=== PATIENT | male | born 1990 | race African-American/Black ===

== ENCOUNTER 2018-04-20 09:48 | Emergency (ER) | payer BC ==
[~2018-04-20] VITALS: Ht 172.7 cm; Wt 117.9 kg
[2018-04-20] MEDS ORDERED: CLEOCIN HCL150 MG PO (11:48)
[2018-04-20] MEDS ORDERED: NAPROSYN500 MG PO (11:48)
[2018-04-20] MEDS ORDERED: ULTRAM 50MG TAB50 MG PO (11:48)
[2018-04-20 12:02] VITALS: BP 147/72
== END 2018-04-20 12:02 | disposition home or self-care (01) ==
LOC: ER 09:48
DX: L03.116 Cellulitis of left lower limb (principal); F17.210 Nicotine dependence, cigarettes, uncomplicated

== ENCOUNTER 2019-07-23 02:06 | Emergency (ER) | payer BC, OTHER ==
[~2019-07-23] VITALS: Ht 175.3 cm; Wt 113.4 kg
[~2019-07-23 02:06] MED LIST: CLEOCIN HCL150 MG PO; NAPROSYN500 MG PO; ULTRAM 50MG TAB50 MG PO
[2019-07-23] MEDS ORDERED: KEFLEX500 M1 PO (03:15)
[2019-07-23] MEDS ORDERED: BACTRIM DS TAB1 EACH PO (03:15)
[2019-07-23 03:30] VITALS: BP 134/84
== END 2019-07-23 03:33 | disposition home or self-care (01) ==
LOC: ER 02:06
DX: L02.416 Cutaneous abscess of left lower limb (principal); F17.210 Nicotine dependence, cigarettes, uncomplicated

== ENCOUNTER 2020-04-01 04:04 | Emergency (ER) | payer OTHER ==
[~2020-04-01] VITALS: Ht 172.7 cm; Wt 113.4 kg
[~2020-04-01 04:04] MED LIST changes: +BACTRIM DS TAB1 EACH PO; +KEFLEX500 M1 PO
[2020-04-01 05:56] VITALS: BP 139/67
== END 2020-04-01 05:56 | disposition home or self-care (01) ==
LOC: ER 04:04
DX: S02.5XXA Fracture of tooth (traumatic), initial encounter for closed fracture (principal); F17.210 Nicotine dependence, cigarettes, uncomplicated; X58.XXXA Exposure to other specified factors, initial encounter; Y93.89 Activity, other specified; Y92.89 Other specified places as the place of occurrence of the external cause; Y99.8 Other external cause status